=== PATIENT | female | born 1995 | race Caucasian/White ===

== ENCOUNTER 2016-10-23 23:04 | Emergency (ER) | payer MEDICAID ==
[2016-10-23 23:28] VITALS: BP 112/75; PULSE 80; RESP 20; TEMP 98.6; O2SAT 97
[2016-10-24] MEDS ORDERED: Naproxen 550 mg Tab PO STA (00:20)
--- NOTE | 2016-10-24 00:22 | C.PDOC ---
History Of Present Illness 21 year old female presents to the ED with complaints of right sided lower jaw pain for three days that has worsened today. Patient notes pain radiates to face and has taken Motrin with no improvement. Patient denies any broken teeth, fever, or other complaints at this time. Time Seen by Provider: 10/23/16 23:54 Chief Complaint (Nursing): Dental Pain History Per: Patient History/Exam Limitations: no limitations Onset/Duration Of Symptoms: Days (3 days ), Worse Since (today) Current Symptoms Are (Timing): Still Present Quality: Positive for: "Pain" Recent travel outside of the [place]: No Past Medical History Reviewed: Historical Data, Nursing Documentation, Vital Signs Vital Signs: Last Vital Signs Temp 98.6 F 10/23/16 23:24 Pulse 80 10/23/16 23:24 Resp 20 10/23/16 23:24 BP 112/75 10/23/16 23:24 Pulse Ox 97 10/24/16 00:29 - Link To Media Procedures INJECT/INFUSE NEC (04/18/04) Family History: States: Unknown Family Hx - Social History Hx Tobacco Use: No Hx Alcohol Use: No Hx Substance Use: No - Immunization History Hx Tetanus Toxoid Vaccination: No Hx Influenza Vaccination: No Hx Pneumococcal Vaccination: No Review Of Systems Constitutional: Negative for: Fever, Chills ENT: Positive for: Mouth Pain (right sided jaw pain ). Negative for: Mouth Swelling, Throat Swelling Cardiovascular: Negative for: Chest Pain Respiratory: Negative for: Shortness of Breath Gastrointestinal: Negative for: Nausea, Vomiting Musculoskeletal: Negative for: Neck Pain Physical Exam - Physical Exam Appears: Non-toxic, No Acute Distress Skin: Warm, Dry Head: Atraumatic Eye(s): bilateral: Normal Inspection, PERRL, EOMI Oral Mucosa: Moist Tongue: No Swelling Lips: No Swelling Teeth: Tender To Palpation, No Loose, No Avulsed Gingiva: No Erythema, No Swelling, Tender (mild gum tenderness) Throat: Normal, No Erythema, No Exudate Chest: Symmetrical, No Deformity Cardiovascular: Rhythm Regular Respiratory: Normal Breath Sounds, No Rales, No Rhonchi, No Wheezing Neurological/Psych: Oriented x3, Normal Speech, Normal Cognition, Normal Cranial Nerves, Normal Motor, Normal Sensation ED Course And Treatment O2 Sat by Pulse Oximetry: 97 (room air) Progress Note: Patient was given Amoxil and Anaprox. Patient was instructed to follw up with dentist. Reassessment Condition: Improved Disposition Counseled Patient/Family Regarding: Diagnosis, Need For Followup, Rx Given - Disposition Disposition: HOME/ ROUTINE Disposition Time: 00:20 Condition: STABLE Additional Instructions: Please follow up with a dentist as soon as possible. Take medications as prescribed. Return to ER for any worse symptoms. Prescriptions: Amoxicillin 500 mg PO TID #21 tablet Naproxen 500 mg PO BID #20 tab Instructions: Toothache (ED) Forms: [facility] (Ukrainian), General Discharge Instructions - Clinical Impression Clinical Impression: Pain, dental - Scribe Statement The provider has reviewed the documentation as recorded by the Scribe Cynthia Graves All medical record entries made by the Michelleibbeverley were at my direction and personally dictated by me. I have reviewed the chart and agree that the record accurately reflects my personal performance of the history, physical exam, medical decision making, and the department course for this patient. I have also personally directed, reviewed, and agree with the discharge instructions and disposition.
[2016-10-24] MEDS ORDERED: Naproxen 550 mg Tab PO ONE (00:26)
== END 2016-10-24 00:45 | disposition home or self-care (01) ==
LOC: C.ER 23:04
DX: K08.89 Other specified disorders of teeth and supporting structures (principal)

== ENCOUNTER 2018-02-25 18:37 | Emergency (ER) | payer MEDICAID ==
[2018-02-25 18:45] VITALS: RESP 20
--- NOTE | 2018-02-25 19:36 | C.PDOC ---
History Of Present Illness 23 year old female presents to the ED complaining of fever associated with cough and body aches ongoing for 4 days. Reports she has been taking OTC Tylenol and Motrin with no relief. Denies any vomiting, diarrhea, rash, chest pain, shortness of breath, hemotypsis or any other associated symptoms. Denies any recent travels or sick contacts. HPI: Influenza Time Seen by Provider: 02/25/18 19:06 Chief Complaint: Flu-like Symptoms History Per: Patient Exam Limitations: no limitations Have you had recent travel within the past 21 days to any of the following countries: [place], [place], [place] or [place]?: No Onset/Duration Of Symptoms: Days (4) Symptoms include: fever, bodyaches, cough. denies: nasal congestion, vomiting, diarrhea, rash Past Medical History Reviewed: Historical Data, Nursing Documentation, Vital Signs Vital Signs: Last Vital Signs Temp 98.7 F 02/25/18 18:42 Pulse 105 H 02/25/18 18:42 Resp 20 02/25/18 18:42 BP 113/72 02/25/18 18:42 Pulse Ox 100 02/25/18 18:42 - Medical History PMH: No Chronic Diseases Surgical History: No Surg Hx - [facility] Procedures INJECT/INFUSE NEC (04/18/04) Family History: States: No Known Family Hx - Social History Hx Tobacco Use: No Hx Alcohol Use: Yes Hx Substance Use: No - Immunization History Hx Tetanus Toxoid Vaccination: No Hx Influenza Vaccination: No Hx Pneumococcal Vaccination: No Review Of Systems Except As Marked, All Systems Reviewed And Found Negative. Constitutional: Positive for: Fever, Other (bodyaches). Negative for: Chills ENT: Negative for: Ear Pain, Throat Pain Cardiovascular: Negative for: Chest Pain Respiratory: Positive for: Cough. Negative for: Shortness of Breath, Hemoptysis Gastrointestinal: Negative for: Nausea, Vomiting, Diarrhea Genitourinary: Negative for: Dysuria, Frequency, Hematuria, Vaginal Discharge, Vaginal Bleeding, Pelvic Pain Physical Exam - Physical Exam Appears: Non-toxic, No Acute Distress Skin: Warm, Dry, No Rash Head: Atraumatic, Normacephalic Eye(s): bilateral: Normal Inspection Ear(s): Bilateral: Normal Nose: Normal Oral Mucosa: Moist Tongue: Normal Appearing Lips: Normal Appearing Teeth: Normal Dentition Gingiva: Normal Appearing Throat: Normal, No Erythema, No Exudate Neck: Supple Chest: Symmetrical Cardiovascular: Rhythm Regular, No Friction Rub, No Murmur Respiratory: Normal Breath Sounds, No Rales, No Rhonchi, No Wheezing Gastrointestinal/Abdominal: Soft, No Tenderness, No Guarding, No Rebound Back: Normal Inspection, No CVA Tenderness Extremity: Normal ROM, No Swelling Extremity: Bilateral: Atraumatic, Normal Color And Temperature, Normal ROM Neurological/Psych: Oriented x3, Normal Speech Gait: Steady Medical Decision Making Medical Decision Making: Plan - Influenza A B Test Influenza Test is positive. On re-examination, the patient is playful and active. Now afebrile, neck is supple, lungs are clear and patient is tolerating PO well. Pull Socket Assembler was instructed to follow up with monitor worker in 1-2 days for further evaluation. - ECG O2 Sat by Pulse Oximetry: 100 (RA) Pulse Ox Interpretation: Normal Disposition - Disposition Referrals: [facility] [Outside] Disposition: HOME/ ROUTINE Disposition Time: 21:22 Condition: STABLE Additional Instructions: Follow up with the medical doctor within 1-2 days. return if worsened. 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 - Scribe Statement The provider has reviewed the documentation as recorded by the Scribe Jolly Alarcon All medical record entries made by the Scribbeverley were at my direction and personally dictated by me. I have reviewed the chart and agree that the record accurately reflects my personal performance of the history, physical exam, medical decision making, and the department course for this patient. I have also personally directed, reviewed, and agree with the discharge instructions and disposition.
[2018-02-25 21:32] VITALS: BP 99/62; PULSE 106; TEMP 100.6
[2018-02-25 22:10] VITALS: O2SAT 100
== END 2018-02-25 21:31 | disposition home or self-care (01) ==
LOC: C.ER 18:37
DX: J11.1 Influenza due to unidentified influenza virus with other respiratory manifestations (principal)